=== PATIENT | male | born 1995 | race Caucasian/White ===

== ENCOUNTER → 2019-12-15 14:12 | Outpatient (CLI) | payer OTHER, SELFPAY ==
--- NOTE | 2019-12-15 | DI.ECHO.S_ITS ---
[facility] +---------+ : : [address] : : : : [id number] : : : : Phone: [phone]---------+ Echocardiogram Report + + :Name: VASQUEZ BASS Study Date: 12/15/2019 Height: 71 in : :[facility] Weight: 180 lb : : Gender: Male BSA: 2.0 m2 : :: 1995 Age: 24 yrs BP: 118/76 mmHg: :Reason For Study: heart disease : : Performed By: Hemalatha Peoples : :Referring: UNSPECIFIED : + + Interpretation Summary ORDERING DOCTOR: MILAGRO PARIKH 1) Normal left ventricular size, thickness, wall motion, and systolic function (EF 60-65%). 2) Normal right ventricular size and function. 3) No significant valvular abnormalities. 4) No prior Echo available for comparison. Procedure: A two-dimensional transthoracic echocardiogram with color flow and Doppler was performed. The study quality was technically adequate. There is no prior echocardiogram noted for this patient. The subcostal views were difficult to obtain and are suboptimal in quality. The patient was in normal sinus rhythm during the exam. Left Ventricle: The left ventricle is normal in size and wall thickness. The ejection fraction is estimated to be 60-65%. Left ventricular wall motion is normal. Diastolic parameters suggest probable normal left ventricular diastolic function and normal filling pressures. Right Ventricle: The right ventricle is normal in size and function. Atria: The left atrium is mildly dilated. The right atrium is normal in size. The interatrial septum is not well visualized. Mitral Valve: The mitral valve is normal in structure and function. There is trace mitral regurgitation. Aortic Valve: The aortic valve is trileaflet. The aortic valve opens well. There is no aortic valve stenosis. No aortic regurgitation is present. Tricuspid Valve: The tricuspid valve is normal in structure and function. There is a trace or physiologic amount of tricuspid regurgitation. Pulmonary artery pressures cannot be estimated because of the lack of a measurable TR jet velocity. Pulmonic Valve: The pulmonic valve is normal in structure and function. There is no pulmonic valvular regurgitation. Great Vessels: The aortic root is normal size. The ascending aorta could not be visualized. The IVC is of normal diameter and collapses greater than 50% with a sniff. This suggests a low right atrial pressure of 3 mm Hg. Pericardium/ Pleura There is no pericardial effusion. MMode/2D Measurements & Calculations LVIDd: 5.5 cm LVOT diam: 2.4 cm LVIDs: 3.8 cm Ao root diam: 3.5 cm FS: 31.7 % EPSS: 0.64 cm IVSd: 0.80 cm LVPWd: 0.98 cm LV gordillo. diameter/BSA (cm/m^2): 2.7 LV sys. diameter/BSA (cm/m^2): 1.9 LA A2 area: 20.4 cm2 RA long axis: 4.2 cm LA A4 area: 18.1 cm2 RA area: 15.1 cm2 LA length (vol): 4.6 cm RA vol: 46.6 ml LA vol: 68.2 ml RA : 23.1 ml/m2 LA vol index: 33.8 ml/m2 IVC diam: 1.8 cm RVD1 (basal): 3.6 cm TAPSE: 2.6 cm Doppler Measurements & Calculations Ao V2 max: 132.7 cm/sec LVOT Max Miguel: 115.9 cm/sec Ao V2 mean: 91.6 cm/sec LV V1 max P.4 mmHg Ao max P.0 mmHg LV V1 VTI: 24.6 cm Ao mean P.8 mmHg JEREMIAH(I,D): 4.5 cm2 Ao V2 VTI: 25.0 cm JEREMIAH(V,D): 4.0 cm2 sev ratio: 0.98 JEREMIAH indexed to BSA (cm^2/m^2): 2.3 MV E max miguel: 67.3 cm/sec PA V2 max: 74.2 cm/sec MV A max miguel: 49.1 cm/sec PA V2 mean: 50.7 cm/sec MV E/A: 1.4 PA mean P.2 mmHg Med Peak E' Miguel: 17.5 cm/sec PA pr(Accel): 18.3 mmHg E/E' med: 3.9 PA Accel Time: 0.11 sec Lat Peak E' Miguel: 16.7 cm/sec E/E' lat: 4.0 E/e' average: 3.9 MV dec time: 0.18 sec MV P1/2t: 51.3 msec MV P1/2t max miguel: 67.7 cm/sec SV(LVOT): 113.7 ml MVA(P1/2t): 4.3 cm2 Reading Physician:04:15 PM
== END ==
DX: I51.9 Heart disease, unspecified (principal)
CPT/HCPCS: 93306